=== PATIENT | female | born 1955 | race African-American/Black ===

== ENCOUNTER → 2016-05-08 | Emergency (ER) | payer OTHER ==
[~2016-05-08] MED LIST: ALBUTEROL SO4 0.083% IH SOL 2.5 MG/3 ML VIAL.NEB. NEB ONE; ASPIRIN 81 MG CHEWABLE TABLETS PO ONE; ATROPINE SO4 0.4 MG/1 ML VIAL IVPUSH ONE; ATROPINE SULFATE 1 MG/10 ML DISP.SYRIN ONE; CALCIUM GLUCONATE 10% - 1,000 MG/10 ML VIAL IVPB ONE; CALCIUM GLUCONATE 10% - 1,000 MG/10 ML VIAL ONE; DEXTROSE 50%-WATER - 25 GM/50 ML VIAL IVPUSH ONE; DEXTROSE 50%-WATER 50 ML DISP.SYRIN ONE; INSULIN (NOVOLOG) ASPART 100 UNITS/ML 10ML VIAL ONE; INSULIN REGULAR HUMAN 100 UNITS/ML *VIAL IVPUSH ONE; SODIUM BICARBONATE 8.4% 50 MEQ/50 ML DISP.SYRIN IVPUSH ONE; SODIUM BICARBONATE 8.4% 50 MEQ/50 ML VIAL ONE; SODIUM POLYSTYRENE SULFONATE 15 GM/60 ML BOTTLE ONE; SODIUM POLYSTYRENE SULFONATE 15 GM/60 ML BOTTLE PO ONE
[2016-05-08 18:49] VITALS: BMI 29.0
[2016-05-08 19:35] LABS: BASOPHIL 0.5 % (0-2.0); EOSINOPHIL 4.3 % (0-4.5); MCH 28.6 pg (25.7-33.7); MCHC 31.9 g/dl (32.0-36.0); MEAN CELL VOLUME 89.5 fl (80-96); MEAN PLT VOLUME 8.9 fl (7.5-11.1); NEUTROPHILS 70.3 % (42.8-82.8); PLATELET COUNT 239 K/MM3 (134-434); RDW 12.6 % (11.6-15.6); WHITE BLOOD COUNT 8.3 K/mm3 (4.0-10.0)
--- NOTE | 2016-05-08 19:58 | PDOC ---
History of Present Illness - General History Source: Patient Exam Limitations: No Limitations - History of Present Illness Initial Comments: 05/08/16 20:22 The patient is a 60 year old female, with a significant past medical history of CAD s/p cardiac stents (x2) and pacemaker (Medtronic), bipolar disorder, hypertension, and AICD, who presents to the emergency department with irregular heartbeat, chest pain, shortness of breath and lightheadedness. The patient on presentation has a heart beat of 37 bpm. She reports that her pacemaker brand is Medtronic and the last time it was checked was on 04/17/16. She describes her chest pain as a mild discomfort, without radiation or modifying factors. The patient denies headache, fever, chills, nausea, vomit, diarrhea and constipation. Denies dysuria, frequency, urgency and hematuria. Allergies: Penicillins Past surgical history: Pacemaker in place Social history: No alcohol, tobacco or drug use reported <Constantine Foote - Last Filed: 05/08/16 21:12> - General History Source: Patient Exam Limitations: No Limitations <Ab Cunningham - Last Filed: 05/08/16 22:04> - General Chief Complaint: Irregular Heart Beat Stated Complaint: PALPITATIONS Time Seen by Provider: 05/08/16 18:39 Past History <Constantine Foote - Last Filed: 05/08/16 21:12> - Psycho/Social/Smoking Cessation Hx Suicidal Ideation: No Smoking History: Never smoked <Ab Cunningahm - Last Filed: 05/08/16 22:04> - Past Medical History Allergies/Adverse Reactions: Allergies Allergy/AdvReac Type Severity Reaction Status Date / Time Penicillins Allergy Verified 05/08/16 18:40 Home Medications: Ambulatory Orders Amlodipine Besylate [Norvasc -] 10 mg PO DAILY 05/08/16 Atorvastatin Ca [Lipitor] 40 mg PO HS 05/08/16 Carvedilol 12.5 mg PO BID 05/08/16 Clopidogrel Bisulfate [Plavix -] 75 mg PO DAILY 05/08/16 Glimepiride [Amaryl -] 2 mg PO DAILY 05/08/16 Lisinopril [Prinivil -] 40 mg PO DAILY 05/08/16 [place] Carbonate [Eskalith -] 300 mg PO BID 05/08/16 Review of Systems - Review of Systems Able to Perform ROS?: Yes Comments:: 05/08/16 20:28 GENERAL/CONSTITUTIONAL: No fever or chills. No weakness. HEAD, EYES, EARS, NOSE AND THROAT: No change in vision. No ear pain or discharge. No sore throat. CARDIOVASCULAR: +Chest pain and shortness of breath, lightheadedness RESPIRATORY: No cough, wheezing, or hemoptysis. GASTROINTESTINAL: No nausea, vomiting, diarrhea or constipation. GENITOURINARY: No dysuria, frequency, or change in urination. MUSCULOSKELETAL: No joint or muscle swelling or pain. No neck or back pain. SKIN: No rash NEUROLOGIC: No headache, loss of consciousness, or change in strength/sensation. ENDOCRINE: No increased thirst. No abnormal weight change HEMATOLOGIC/LYMPHATIC: No anemia, easy bleeding, or history of blood clots. ALLERGIC/IMMUNOLOGIC: No hives or skin allergy. <Constantine Foote - Last Filed: 05/08/16 21:12> *Physical Exam - Vital Signs Last Vital Signs Temp Pulse Resp BP Pulse Ox 35 L 18 139/60 100 05/08/16 18:41 05/08/16 18:41 05/08/16 18:41 05/08/16 18:41 - Physical Exam Comments: 05/08/16 20:34 GENERAL: Awake, alert, and fully oriented, in no acute distress HEAD: No signs of trauma, normocephalic, atraumatic EYES: PERRLA, EOMI, sclera anicteric, conjunctiva clear ENT: Auricles normal inspection, hearing grossly normal, nares patent, oropharynx clear without exudates. Moist mucosa NECK: Normal ROM, supple, no lymphadenopathy, JVD, or masses LUNGS: No distress, speaks full sentences, clear to auscultation bilaterally HEART: +Left side pacemaker, bradycardic, no murmurs, rubs or gallops, peripheral pulses normal and equal bilaterally. ABDOMEN: Soft, nontender, normoactive bowel sounds. No guarding, no rebound. No masses EXTREMITIES: Normal inspection, Normal range of motion, no edema. No clubbing or cyanosis. NEUROLOGICAL: Cranial nerves II through XII grossly intact. Normal speech, normal gait, no focal sensorimotor deficits SKIN: Warm, Dry, normal turgor, no rashes or lesions noted. <Constantine Foote - Last Filed: 05/08/16 21:12> - Vital Signs Last Vital Signs Temp Pulse Resp BP Pulse Ox 35 L 18 139/60 100 05/08/16 18:41 05/08/16 18:41 05/08/16 18:41 05/08/16 18:41 <Ab Cunningham - Last Filed: 05/08/16 22:04> Heart Score/ECG Review - History History: Moderately suspicious - Electrocardiogram EKG: Significant ST-depression - Age Age: 45-65 - Risk Factors Based on the list above the patient has:: >/=3 risk factors or Hx atherosclerotic disease #1 ECG reviewed & interpreted by me at: 18:50 05/08/16 19:55 Appears to have intermittent paced beats. ?pacemaker failure. QTC 411 msec. No discernible P waves. <Ab Cunningham - Last Filed: 05/08/16 22:04> ED Treatment Course - LABORATORY CBC & Chemistry Diagram: 05/08/16 19:31 05/08/16 19:12 - ADDITIONAL ORDERS Additional order review: Laboratory Results 05/08/16 05/08/16 19:31 19:12 INR Cancelled Sodium Cancelled Potassium Cancelled Chloride Cancelled Carbon Dioxide Cancelled Anion Gap Cancelled BUN Cancelled Creatinine Cancelled Creat Clearance w eGFR Cancelled Random Glucose Cancelled Calcium Cancelled Magnesium Cancelled Total Bilirubin Cancelled AST Cancelled ALT Cancelled Alkaline Phosphatase Cancelled Creatine Kinase Cancelled Troponin I Cancelled B-Natriuretic Peptide Cancelled Total Protein Cancelled Albumin Cancelled 05/08/16 19:31 RBC 3.81 MCV 89.5 MCHC 31.9 L RDW 12.6 MPV 8.9 Neutrophils % 70.3 Lymphocytes % 18.5 Monocytes % 6.4 Eosinophils % 4.3 Basophils % 0.5 - RADIOLOGY Radiograph Interpretation: 05/08/16 21:09 Chest X-Ray Reviewed by: Dr. Ludin Raymond Impression: Cardiomegaly. No acute disease. - Medications Given in the ED: ED Medications Discontinued Medications Generic Name Dose Route Start Last Admin Trade Name Freq PRN Reason Stop Dose Admin Atropine Sulfate 0.5 mg 05/08/16 18:58 05/08/16 20:11 Atropine Injection - IVPUSH 05/08/16 18:59 Not Given ONCE ONE <Constantine Foote - Last Filed: 05/08/16 21:12> - LABORATORY CBC & Chemistry Diagram: 05/08/16 19:31 05/08/16 21:20 - ADDITIONAL ORDERS Additional order review: 05/08/16 19:31 RBC 3.81 MCV 89.5 MCHC 31.9 L RDW 12.6 MPV 8.9 Neutrophils % 70.3 Lymphocytes % 18.5 Monocytes % 6.4 Eosinophils % 4.3 Basophils % 0.5 <Ab Cunningham - Last Filed: 05/08/16 22:04> Medical Decision Making - Critical Care Time Total Critical Care Time (minutes): 45 Critical Care Statement: The care of this patient involved high complexity decision making to prevent further life threatening deterioration of the patient 's condition and/or to evalute & treat vital organ system(s) failure or risk of failure. - Medical Decision Making 05/08/16 20:29 Dr. Noble was called regarding the patient at 7:18pm Dr. Noble was consulted regarding the patient at 7:31pm [phone] [employer] was called regarding the patient at 7:40pm [employer] notes that financial foundations representative Michael Brumfield would call back. Mr. Brumfield was consulted regarding the patient at 7:48pm Mr. Brumfield arrived at the ED at 8:15pm [phone] Dr. Noble was consulted again regarding the patient at 8:30pm and he recommends transferring the patient to [facility]. Transfer Center was called at [facility] to initiate transfer. The patient was accepted by Dr. Nola Beach to the CCU. <Constantine Foote - Last Filed: 05/08/16 21:12> - Medical Decision Making 05/08/16 19:55 A portion of this note was documented by scribe services under my direction. I have reviewed the details of the note, within reason, and agree with the documentation with the following case summary and management plan written by me. Patient treated in the ED. Nursing notes are reviewed and incorporated into the medical decision-making. Vital signs reviewed. Peripheral IV access obtained by the nurse, laboratory studies are drawn and sent, reviewed and interpreted by myself. Vital Signs Temp Pulse Resp BP Pulse Ox 35 L 18 139/60 100 05/08/16 18:41 05/08/16 18:41 05/08/16 18:41 05/08/16 18:41 60-year-old female with history of coronary disease, status post 2 stents on Plavix, hypertension, bipolar disorder, Medtronic pacemaker, AICD presents with chest pressure, lightheadedness and shortness of breath since 4 PM. Patient was in her usual state of health until 4 PM when her symptoms started suddenly. Patient then came to the ED. Her EKG demonstrated a heart rate of 36 with intermittent paced beats and left ventricle hypertrophy concerning for pacemaker failure. Patient was placed on transcutaneous pacers and crash cart was placed at bedside. Patient reports some mild shortness of breath but continues to mentate. Denies chest pain. Blood pressures has been normal. Atropine is at the bedside but not given. Case was discussed with Dr. Noble. He requests stat [employer] interrogation and if is found to have pacemaker failure, to have the patient transferred immediatey to [facility]. The patient has been reassessed, and now her HR is 100. Will continue to observe her on outsole rounder. 05/08/16 21:24 [employer] has seen and interrogated the pacemaker. The pacemaker is functioning. However, pt appears to have frequent PVCs and no obvious sinus beat. After discussing case with Dr. Noble, there is concerns for sinus arrest vs. complete heart block. Given that the patient has a single lead ICD, the patient will likely need an upgrade to dual chamber. Dr. Noble had discussed the case with the manager safe at [facility], Dr. Nola Beach, who accepted the patient to her ICU. Patient is maintaining her blood pressure (systolics in 160s) and is mentating. Aspirin was ordered. Patient consents for transfer. 05/08/16 22:03 Chest xray reviewed. Cardiomegaly. CBC, BMP 05/08/16 19:31 05/08/16 21:20 CMP Sodium 133 mmol/L (136-145) L 05/08/16 21:20 Potassium 6.8 mmol/L (3.5-5.1) H* 05/08/16 21:20 Chloride 105 mmol/L (98-107) 05/08/16 21:20 Carbon Dioxide 22 mmol/L (21-32) 05/08/16 21:20 Anion Gap 6 (8-16) L 05/08/16 21:20 BUN 39 mg/dL (7-18) H 05/08/16 21:20 Creatinine 2.2 mg/dL (0.55-1.02) H 05/08/16 21:20 Creat Clearance w eGFR 22.93 (>60) 05/08/16 21:20 Random Glucose 222 mg/dL (74-106) H 05/08/16 21:20 Calcium 9.9 mg/dL (8.5-10.1) 05/08/16 21:20 Magnesium Cancelled 05/08/16 19:12 Total Bilirubin 0.3 mg/dL (0.2-1.0) 05/08/16 21:20 AST 101 U/L (15-37) H 05/08/16 21:20 ALT 111 U/L (12-78) H 05/08/16 21:20 Alkaline Phosphatase 351 U/L (45-117) H 05/08/16 21:20 Creatine Kinase 79 IU/L (26-192) 05/08/16 21:20 Troponin I 0.07 ng/ml (0.00-0.05) H 05/08/16 21:20 B-Natriuretic Peptide Cancelled 05/08/16 19:12 Total Protein 7.8 g/dl (6.4-8.2) 05/08/16 21:20 Albumin 3.8 g/dl (3.4-5.0) 05/08/16 21:20 Potassium is nonhemolyzed. Creatinine is 2.2 HyperK is likely the issue. Calcium, sodium bicarb, insulin, dextrose, insulin, and kayexelate ordered. Dr. Hernadez informed of the findings. <Ab Cunningham - Last Filed: 05/08/16 22:04> *DC/Admit/Observation/Transfer - Attestations Scribe Attestion: 05/08/16 20:28 Documentation prepared by Constantine Foote, acting as medical csr for Ab Cunningham MD. <Constantine Foote - Last Filed: 05/08/16 21:12> - Transfer to Acute Care Facility Receiving Facility: [facility] Accepting Physician:: Dr. Nola Beach <Ab Cunningham - Last Filed: 05/08/16 22:04> Diagnosis at time of Disposition: Bradycardia Chest pain Qualifiers: Chest pain type: unspecified Qualified Code(s): R07.9 - Chest pain, unspecified - Discharge Dispostion Disposition: TRANSFER ACUTE CARE/OTHER HOSP Condition at time of disposition: Stable
--- NOTE | 2016-05-08 21:12 | PN ---
Progress Note (short form) - Note Progress Note: Cardiology Called by Dr. Cunningham, case reviewed. 60F with CAD s/p PCI, Medtronic AICD presented to ER with complaints of light- headedness, SOB and chest pain. 12 ECG showed demand ventricular pacing with VPCs following paced beats at a rate of around 40bpm. Patient hemodynamically stable. Reported last ICD check in [place] in March was fine. Urgent Medtronic interrogation done: single lead device, set to VVI 40bpm. No atrial activity Suspect either high grade AV block or severe sinus node dysfx, probably of new onset. Possibly triggered by ischemic event. In light of history CAD and new rhythm disturbance, patient will need ischemic work up and ICD upgrade with addition of atrial lead. Case reviewed with my colleague in EP at [facility], who reviewed ECG and agreed with plan. Case reviewed with CCU attending at [facility], Dr. Beach. Patient accepted for transfer to CCU at [facility] for cath and EP evaluation with ICD upgrade. Dr. Cunningham notified of above and plan for transfer tonight.
[2016-05-08 21:24] VITALS: BP 193/83; PULSE 101
[2016-05-08 21:43] LABS: ACTIVATED PTT 31.1 SECONDS (26.9-34.4)
[2016-05-08 21:49] LABS: ALBUMIN 3.8 g/dl (3.4-5.0); CALCIUM 9.9 mg/dL (8.5-10.1)
[2016-05-08 21:55] LABS: BILIRUBIN,TOTAL 0.3 mg/dL (0.2-1.0); CREATININE 2.2 mg/dL (0.55-1.02); TOT PROT 7.8 g/dl (6.4-8.2); TROPONIN I 0.07 ng/ml (0.00-0.05)
[2016-05-09 12:31] LABS: MAGNESIUM 2.7 mg/dL (1.8-2.4)
--- NOTE | 2016-05-09 16:09 | EKG ---
Test Reason : Blood Pressure : / mmHG Vent. Rate : 036 BPM Atrial Rate : 036 BPM P-R Int : 000 ms QRS Dur : 108 ms QT Int : 532 ms P-R-T Axes : 000 050 217 degrees QTc Int : 411 ms ELECTRONIC VENTRICULAR PACEMAKER PREMATURE VENTRICULAR COMPLEXES ABNORMAL ECG NO PREVIOUS ECGS AVAILABLE Confirmed by JANIE PALMER MD ([id number]) on 05/09/2016 4:09:06 PM Referred By: Confirmed By:JANIE PALMER MD
== END | disposition short-term general hospital (02) ==
LOC: JER 18:37
PROC: 3E0F7GC Introduction of Other Therapeutic Substance into Respiratory Tract, Via Natural or Artificial Opening (ICD-10-PCS; principal; 2016-05-08)
PROC: 3E033GC Introduction of Other Therapeutic Substance into Peripheral Vein, Percutaneous Approach (ICD-10-PCS; 2016-05-08)
PROC: 3E033VG Introduction of Insulin into Peripheral Vein, Percutaneous Approach (ICD-10-PCS; 2016-05-08)
DX: R00.1 Bradycardia, unspecified (principal); T82.9XXA Unspecified complication of cardiac and vascular prosthetic device, implant and graft, initial encounter; I25.10 Atherosclerotic heart disease of native coronary artery without angina pectoris; I10 Essential (primary) hypertension; R07.9 Chest pain, unspecified
CPT/HCPCS: 36415; 71010-TC; 80053; 82550; 83735; 84484; 85025; 85610; 85730; 93005; 93010; 94640; 96374; 96375; 99283-25

== ENCOUNTER 2016-11-12 16:00 | Emergency (ER) | payer OTHER ==
[2016-11-12 16:10] VITALS: BP 195/69; PULSE 69; TEMP 98.4; BMI 25.8
--- NOTE | 2016-11-12 16:43 | PDOC ---
Attending Attestation - Resident Resident Name: Raymond Brown - ED Attending Attestation I have performed the following: I have examined & evaluated the patient, The case was reviewed & discussed with the resident, I agree w/resident's findings & plan, Exceptions are as noted - HPI HPI: 11/12/16 17:08 61yo hx CAD s/p 2 stents, PM, bipolar d/o, HTN, p/w pain of her R great toe. Was given a 3 day course of steroids for gout 2 weeks ago by PMD but pain has returned. Took tylenol for pain with no relief today which prompted her to come to the ED. Denies fevers, chills, CP, SOB, abd pain, N/V/D, LE edema. - Physicial Exam PE: 11/12/16 17:13 GENERAL: Awake, alert, and fully oriented, in no acute distress HEAD: No signs of trauma EYES: PERRLA, EOMI, sclera anicteric, conjunctiva clear ENT: Auricles normal inspection, hearing grossly normal, nares patent, oropharynx clear without exudates. Moist mucosa NECK: Normal ROM, supple, no lymphadenopathy, JVD, or masses LUNGS: Breath sounds equal, clear to auscultation bilaterally. No wheezes, and no crackles HEART: Regular rate and rhythm, normal S1 and S2, no murmurs, rubs or gallops ABDOMEN: Soft, nontender, normoactive bowel sounds. No guarding, no rebound. No masses EXTREMITIES: Normal range of motion, no edema. No clubbing or cyanosis. R great toe with swelling and ttp, no erythema or warmth NEUROLOGICAL: Normal speech, cranial nerves intact, negative pronator drift, 5/ 5 strength in all 4 extremities, normal sensation to light touch in all 4 extremities, normal cerebellar exam, normal gait, normal reflexes and tone SKIN: Warm, Dry, normal turgor, no rashes or lesions noted. BP on my exam: 160/73 - Medical Decision Making 11/12/16 17:14 61yo F hx gout p/w pain to R great toe consistent with gout flare -steroids -toradol -reassess 11/12/16 19:30 Pt reports improvement in pain with toradol and prednisone. I discussed the physical exam findings, ancillary test results and final diagnoses with the patient. I answered all of the patient's questions. The patient was satisfied with the care received and felt comfortable with the discharge plan and treatment plan. The patient will call their primary care physician within 24 hours to arrange follow-up and will return to the Emergency Department with any new, persistent or worsening symptoms. 11/12/16 21:32 Pt's son Modesto called and was concerned about his mother's elevated BP at home. He reports otherwise, she feels well and her pain is improved. He reports his mothers BP was in the 190s systolic and he notes that her BP was high in the emergency department in triage as well. He reports her BP usually is in the 150s /160s systolic. I had rechecked the pt's BP on my exam as I noted her triage BP was elevated and found it to be in the 160s systolic. I explained to Modesto that her initial BP was likely elevated in triage because she was in pain from her gout flare. I had Modesto go through his mother's home medications on the phone with me and we found that she had not yet received her evening dose of carvedilol 12.5mg. I advised Modesto to give his mother the carvedilol and that if her BP did not improve, that he could bring her to the emergency department for further evaluation. I also advised him to bring her back if he had any other concerns, to which he agreed he would if anything changed.
[2016-11-12] MEDS ORDERED: KETOROLAC TROMETHAMINE 30 MG/1 ML VIAL IVPUSH ONE (17:02)
[2016-11-12] MEDS ORDERED: KETOROLAC TROMETHAMINE 30 MG/1 ML VIAL ONE (17:07)
[2016-11-12] MEDS ORDERED: predniSONE 20 MG TABLET (UD) PO ONE (17:15)
[2016-11-12] MEDS ORDERED: predniSONE 20 MG TABLET (UD) ONE (17:23)
--- NOTE | 2016-11-12 17:55 | PDOC ---
History of Present Illness - General Chief Complaint: Pain Stated Complaint: PAIN, ACUTE Time Seen by Provider: 11/12/16 16:39 History Source: Patient Exam Limitations: No Limitations - History of Present Illness Initial Comments: 11/12/16 17:50 The patient is a 61F with a PMH of CAD s/p stent x2, pacemaker, bipolar disorder , HTN, and gout presents with R great toe pain. She states that she saw her PCP 2 weeks ago for the same pain and was given a bout of steroids over 3 days. She felt better then 6 days ago she started to feel the pain again. 2 days ago the pain worsened and she tried taking tylenol and it has not helped. Past History - Past Medical History Allergies/Adverse Reactions: Allergies Allergy/AdvReac Type Severity Reaction Status Date / Time Penicillins Allergy Verified 11/12/16 16:07 Home Medications: Ambulatory Orders Amlodipine Besylate [Norvasc -] 10 mg PO DAILY 05/08/16 Atorvastatin Ca [Lipitor] 40 mg PO HS 05/08/16 Carvedilol 12.5 mg PO BID 05/08/16 Clopidogrel Bisulfate [Plavix -] 75 mg PO DAILY 05/08/16 Glimepiride [Amaryl -] 2 mg PO DAILY 05/08/16 Lisinopril [Prinivil -] 40 mg PO DAILY 05/08/16 [place] Carbonate [Eskalith -] 300 mg PO BID 05/08/16 Prednisone [Prednisone 50 MG TABLETS] 50 mg PO ONCE #5 tablet 11/12/16 Cardiac Disorders: Yes (ppm, cardiac stent) Diabetes: Yes HTN: Yes Hypercholesterolemia: Yes Other medical history: GOUT - Immunization History Immunization Up to Date: Yes - Psycho/Social/Smoking Cessation Hx Anxiety: No Suicidal Ideation: No Smoking History: Never smoked Have you smoked in the past 12 months: No Information on smoking cessation initiated: No Hx Alcohol Use: No Drug/Substance Use Hx: No Substance Use Type: None Review of Systems - Review of Systems Able to Perform ROS?: Yes Is the patient limited French proficient: No Constitutional: No: Chills, Fever Respiratory: No: Shortness of Breath Cardiac (ROS): No: Chest Pain ABD/GI: No: Nausea, Vomiting : No: Burning, Dysuria Musculoskeletal: Yes: Gout, Joint Pain, Joint Swelling, Joint Stiffness Neurological: No: Headache, Numbness, Tingling, Weakness *Physical Exam - Vital Signs Last Vital Signs Temp Pulse Resp BP Pulse Ox 98.4 F 69 18 195/69 100 11/12/16 16:07 11/12/16 16:07 11/12/16 16:07 11/12/16 16:07 11/12/16 16:07 - Physical Exam General Appearance: Yes: Nourished, Appropriately Dressed. No: Apparent Distress HEENT: positive: Normal Voice, Hearing Grossly Normal Respiratory/Chest: positive: Lungs Clear, Normal Breath Sounds. negative: Chest Tender, Respiratory Distress, Labored Respiration, Decreased Breath Sounds , Paradoxal Breathing, Rales, Rhonchi, Stridor, Wheezing, Hyperresonant Cardiovascular: positive: Regular Rhythm, Regular Rate, S1, S2. negative: Bradycardia, Tachycardia, Diastolic Murmur, Systolic Murmur Gastrointestinal/Abdominal: positive: Flat, Soft. negative: Tender, Protuberent , Distended, Guarding, Rebound, Tenderness Extremity: positive: Swelling (L foot), Other (Swollen R great toe, tender to palpation). negative: Coldness, Calf Tenderness Integumentary: positive: Dry, Warm, Swelling. negative: Hives, Petechiae, Ecchymosis, Bruising ED Treatment Course - Medications Given in the ED: ED Medications Discontinued Medications Generic Name Dose Route Start Last Admin Trade Name Richq PRN Reason Stop Dose Admin Ketorolac Tromethamine 30 mg 11/12/16 17:02 11/12/16 17:15 Toradol Injection - IVPUSH 11/12/16 17:03 30 mg ONCE ONE Administration Prednisone 40 mg 11/12/16 17:15 11/12/16 17:31 Deltasone - PO 11/12/16 17:16 40 mg ONCE ONE Administration Medical Decision Making - Medical Decision Making 11/12/16 17:54 The patient is a 61F with a PMH of gout who presents with a gout flare up. I will give NSAIDs and steroids and reassess the patient. 11/12/16 20:04 Patient states she is feeling better and is ready for d/c. *DC/Admit/Observation/Transfer Diagnosis at time of Disposition: Gout Qualifiers: Gout site: toe Gout etiology: unspecified cause Laterality: right Presence of tophus: without tophus - Discharge Dispostion Disposition: HOME Condition at time of disposition: Improved Admit: No - Prescriptions Prescriptions: Prednisone [Prednisone 50 MG TABLETS] 50 mg PO ONCE #5 tablet - Referrals Referrals: STAFF,NOT ON [Primary Care Provider] - - Patient Instructions Additional Instructions: Please follow up with your PCP within 2-3 days and return if symptoms persist, worsen, or if new symptoms arise. Print Language: SYRIAC - Attestations Physician Attestion: 11/12/16 20:05 I, Dr. Raymond Brown, attest that this document has been prepared under my direction and personally reviewed by me in its entirety. I further attest, that it accurately reflects all work, treatment, procedures and medical decision -making performed by me.
--- NOTE | 2016-11-14 11:13 | EKG ---
Test Reason : Blood Pressure : / mmHG Vent. Rate : 059 BPM Atrial Rate : 059 BPM P-R Int : 214 ms QRS Dur : 104 ms QT Int : 456 ms P-R-T Axes : 062 032 213 degrees QTc Int : 451 ms Atrial-paced rhythm with prolonged AV conduction LEFT VENTRICULAR HYPERTROPHY WITH REPOLARIZATION ABNORMALITY ABNORMAL ECG WHEN COMPARED WITH ECG OF 08-MAY-2016 18:50, ELECTRONIC ATRIAL PACEMAKER HAS REPLACED ELECTRONIC VENTRICULAR PACEMAKER VENT. RATE HAS INCREASED BY 23 BPM Confirmed by JANIE PALMER MD ([id number]) on 11/14/2016 11:13:20 AM Referred By: Confirmed By:JANIE PALMER MD
== END 2016-11-12 20:30 | disposition home or self-care (01) ==
LOC: JER 16:00
PROC: 3E0333Z Introduction of Anti-inflammatory into Peripheral Vein, Percutaneous Approach (ICD-10-PCS; principal; 2016-11-12)
DX: M10.9 Gout, unspecified (principal); I25.10 Atherosclerotic heart disease of native coronary artery without angina pectoris; I10 Essential (primary) hypertension; Z95.5 Presence of coronary angioplasty implant and graft; Z95.0 Presence of cardiac pacemaker; E11.9 Type 2 diabetes mellitus without complications; Z79.84 Long term (current) use of oral hypoglycemic drugs; E78.00 Pure hypercholesterolemia, unspecified
CPT/HCPCS: 93005; 93010; 96374; 99282-25